=== PATIENT | male | born 1985 | race Caucasian/White ===

== ENCOUNTER 2016-10-28 08:21 | Emergency (ER) | payer OTHER, BC ==
[2016-10-28 08:30] VITALS: BP 143/98; PULSE 89; TEMP 98.1; BMI 31.3
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
== END 2016-10-28 09:29 | disposition home or self-care (01) ==
LOC: JERFT 08:21
DX: S80.02XA Contusion of left knee, initial encounter (principal); W18.39XA Other fall on same level, initial encounter; Y04.8XXA Assault by other bodily force, initial encounter; Y93.89 Activity, other specified; Y92.238 Other place in hospital as the place of occurrence of the external cause; Y99.0 Civilian activity done for income or pay
CPT/HCPCS: 73562-TC-LT; 99281-25

== ENCOUNTER 2017-06-19 08:09 | Emergency (ER) | payer BC, OTHER ==
[2017-06-19 08:22] VITALS: BP 150/92; PULSE 58; TEMP 98.4; BMI 33.0
--- NOTE | 2017-06-19 08:38 | PDOC ---
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 States cough is moist but has not expectorated phlegm . Stop smoking approximate 2 months ago. States gets bronchitis every time this year Timing/Duration: unsure, 24 hours Severity: mild, moderate Modifying Factors: improves with: cold therapy Associated Symptoms: reports: cough, fever/chills, malaise Past History - Travel Traveled outside of the country in the last 30 days: No Close contact w/someone who was outside of country & ill: No - Past Medical History Allergies/Adverse Reactions: Allergies Allergy/AdvReac Type Severity Reaction Status Date / Time No Known Allergies Allergy Verified 06/19/17 08:22 Home Medications: Ambulatory Orders Azithromycin [Zithromax -] 250 mg PO UTDICT #6 tab 06/19/17 COPD: No - Suicide/Smoking/Psychosocial Hx Smoking Status: Yes Smoking History: Former smoker Have you smoked in the past 12 months: Yes Number of Cigarettes Smoked Daily: 2 Information on smoking cessation initiated: No Hx Alcohol Use: No Drug/Substance Use Hx: No Substance Use Type: None Review of Systems - Review of Systems Able to Perform ROS?: Yes Is the patient limited Scottish proficient: Yes Constitutional: Yes: Symptoms Reported, See HPI, Loss of Appetite, Malaise HEENTM: Yes: Symptoms Reported, See HPI, Nose Congestion, Throat Pain Respiratory: Yes: See HPI, Cough. No: Shortness of Breath, Wheezing Musculoskeletal: Yes: Symptoms Reported, See HPI Integumentary: Yes: Symptoms Reported, See HPI All Other Systems: Reviewed and Negative *Physical Exam - Vital Signs Last Vital Signs Temp Pulse Resp BP Pulse Ox 98.4 F 58 L 17 150/92 100 06/19/17 08:17 06/19/17 08:17 06/19/17 08:17 06/19/17 08:17 06/19/17 08:17 - Physical Exam General Appearance: Yes: Nourished, Appropriately Dressed, Apparent Distress HEENT: positive: DIRK, Normal ENT Inspection, TMs Normal, Pharynx Normal Neck: positive: Supple, Lymphadenopathy (R), Lymphadenopathy (L) (just to but landmarks easily visualized) Respiratory/Chest: positive: Lungs Clear. negative: Rhonchi, Wheezing (course but clear) Gastrointestinal/Abdominal: positive: Normal Bowel Sounds, Soft. 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, Fully Oriented, Alert, Normal Mood/ Affect, Normal Response, Motor Strength 10/03 Medical Decision Making - Medical Decision Making 06/19/17 08:38 Bronchitis, will treat with Z-Wan due to smoking cessation recently *DC/Admit/Observation/Transfer Diagnosis at time of Disposition: Bronchitis - Discharge Dispostion Disposition: HOME Condition at time of disposition: Stable Admit: No - Referrals - Patient Instructions Printed Discharge Instructions: DI for Acute Bronchitis Additional Instructions: Rest, drink lots of fluids: Teas, water, soups, Pedialyte Saltwater gargles Steamy showers/seem to face break up mucus Avoid contact with others until fevers and cough resolved Lots of handwashing and good hygiene Continue [id number] medications for symptomatic relief Tylenol or Motrin for fever and pain Azithromycin as directed Followup with private physician in one to 2 days as needed Return to emergency department for worsened symptoms, fevers, dehydration - Post Discharge Activity Forms/Work/School Notes: Back to Work
== END 2017-06-19 08:38 | disposition home or self-care (01) ==
LOC: JERFT 08:09
DX: J40 Bronchitis, not specified as acute or chronic (principal); Z87.891 Personal history of nicotine dependence
CPT/HCPCS: 99281-25

== ENCOUNTER 2018-02-23 08:43 | Emergency (ER) | payer BC ==
[2018-02-23 08:58] VITALS: BP 134/91; PULSE 74; TEMP 99; BMI 32.1
[2018-02-23] MEDS ORDERED: ALBUTEROL SO4 2.5/IPRATROPIUM 0.5 INH SOL 3 ML VIAL.NEB. NEB ONE ×2 (09:05→09:12)
--- NOTE | 2018-02-23 09:16 | PDOC ---
History of Present Illness - General Chief Complaint: Cold Symptoms Stated Complaint: POSSIBLE BRONCHITIS Time Seen by Provider: 02/23/18 09:04 History Source: Patient Exam Limitations: No Limitations - History of Present Illness Initial Comments: 02/23/18 09:05 Came for evaluation of worsening cough, fevers, chills, chest congestion. States phlegm is brown. Stop smoking approximately 3 months ago . Has used over- the-counter medications with some relief. Timing/Duration: reports: changing over time, getting worse Severity: reports: moderate Associated Symptoms: reports: denies symptoms, cough, earache, fever/chills, nasal congestion, wheezing Past History - Travel Traveled outside of the country in the last 30 days: No Close contact w/someone who was outside of country & ill: No - Past Medical History Allergies/Adverse Reactions: Allergies Allergy/AdvReac Type Severity Reaction Status Date / Time No Known Allergies Allergy Verified 02/23/18 08:52 Home Medications: Ambulatory Orders Albuterol Sulfate [Proventil HFA Inhaler -] 1 - 2 inh PO QID #1 inhaler Azithromycin [Zithromax -] 250 mg PO UTDICT #6 tab 02/23/18 COPD: No - Suicide/Smoking/Psychosocial Hx Smoking Status: Yes Smoking History: Never smoked Have you smoked in the past 12 months: Yes Number of Cigarettes Smoked Daily: 2 Hx Alcohol Use: No Drug/Substance Use Hx: No Substance Use Type: None Review of Systems - Review of Systems Able to Perform ROS?: Yes Is the patient limited Tajik proficient: Yes Constitutional: Yes: Symptoms Reported, See HPI, Chills, Fever, Malaise HEENTM: Yes: Symptoms Reported, See HPI, Nose Congestion Respiratory: Yes: See HPI, Cough, Shortness of Breath, Wheezing Musculoskeletal: Yes: Symptoms Reported, See HPI, Muscle Pain All Other Systems: Reviewed and Negative *Physical Exam - Vital Signs Last Vital Signs Temp Pulse Resp BP Pulse Ox 99 F 74 16 134/91 100 02/23/18 08:52 02/23/18 08:52 02/23/18 08:52 02/23/18 08:52 02/23/18 08:52 - Physical Exam General Appearance: Yes: Nourished, Appropriately Dressed, Apparent Distress, Mild Distress, Moderate Distress HEENT: positive: DIRK, Normal ENT Inspection, TMs Normal (congested but landmarks easily visualized), Pharynx Normal, Nasal Congestion, Rhinorrhea, Sinus Tenderness Neck: positive: Supple, Lymphadenopathy (R), Lymphadenopathy (L). negative: Tender Respiratory/Chest: positive: Chest Tender, Wheezing (course inspiratory and expiratory). negative: Lungs Clear Cardiovascular: positive: Regular Rhythm Gastrointestinal/Abdominal: positive: Soft. 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, Fully Oriented, Normal Mood/Affect , Normal Response, Motor Strength 10/03 Progress Note - Progress Note Progress Note: Bronchitis, much improved after 1 DuoNeb, we will continue albuterol pumps and azithromycin *DC/Admit/Observation/Transfer Diagnosis at time of Disposition: Bronchitis - Discharge Dispostion Disposition: HOME Condition at time of disposition: Stable Decision to Admit order: No - Prescriptions Prescriptions: Albuterol Sulfate [Proventil HFA Inhaler -] 1 - 2 inh PO QID #1 inhaler Azithromycin [Zithromax -] 250 mg PO UTDICT #6 tab - Referrals Referrals: Uriel Castillo MD [Primary Care Provider] - - Patient Instructions Printed Discharge Instructions: DI for Acute Bronchitis Additional Instructions: Rest, drink lots of fluids: Teas, water, soups, Pedialyte Saltwater gargles Steamy showers/seem to face break up mucus Avoid contact with others until fevers and cough resolved Lots of handwashing and good hygiene Continue [id number] medications for symptomatic relief Tylenol or Motrin for fever and pain Continue albuterol nebulizers every 4-6 hours for the next 2 days then as needed for continued cough Azithromycin as directed Followup with private physician in one to 2 days Return to emergency department / pediatric hospital for worsened symptoms, fevers, dehydration - Post Discharge Activity Forms/Work/School Notes: Back to Work
== END 2018-02-23 09:45 | disposition home or self-care (01) ==
LOC: JER 08:43 → JERFT 08:43
PROC: 3E0F7GC Introduction of Other Therapeutic Substance into Respiratory Tract, Via Natural or Artificial Opening (ICD-10-PCS; principal; 2018-02-23)
DX: J40 Bronchitis, not specified as acute or chronic (principal)
CPT/HCPCS: 99281-25; J7620

== ENCOUNTER 2018-08-06 08:12 | Emergency (ER) | payer OTHER, BC ==
[2018-08-06 08:23] VITALS: BP 159/116; PULSE 84; TEMP 98.5; BMI 32.8
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
== END 2018-08-06 09:03 | disposition home or self-care (01) ==
LOC: JER 08:12
DX: S93.401A Sprain of unspecified ligament of right ankle, initial encounter (principal); Y04.8XXA Assault by other bodily force, initial encounter; Y93.89 Activity, other specified; Y92.238 Other place in hospital as the place of occurrence of the external cause; Y99.8 Other external cause status; Y07.9 Unspecified perpetrator of maltreatment and neglect
CPT/HCPCS: 73130-TC-LT-FY; 73610-TC-RT-FY; 73630-TC-RT-FY; 99281-25